=== PATIENT | male | born 1970 | race African-American/Black ===

== ENCOUNTER 2016-05-18 12:05 | Outpatient (CLI) | payer MEDICARE, MEDICAID ==
[2016-05-18 12:19] LABS: #Basophils 0.1 thou/uL (0.0-0.2); #Eosinphils 0.2 thou/uL (0.0-0.7); #Lymphocytes 3.1 thou/uL (1.20-3.40); #Monocytes 0.5 thou/uL (0.11-0.59); #Neutrophils 2.6 thou/uL (1.40-6.50); %Basophils 1.8 % (0.0-1.0); %Eosinophils 3.5 % (0.0-10.0); %Monocytes 7.6 % (0.0-10.0); Hematocrit 43.2 % (42.0-52.0); Mean Platelet Volume 6.5 fL (7.4-10.4); Red Blood Cell (RBC) Count 4.64 mill/uL (4.70-6.10); White Blood Cell (WBC) Count 6.6 thou/uL (4.8-10.8)
[2016-05-18 12:40] LABS: ALT (SGPT) 56 U/L (0-55); AST (SGOT) 38 U/L (5-34); Alkaline Phosphatase 56 U/L (40-150); Anion Gap 14 mmol/L (10-20); BUN (Urea Nitrogen) 13 mg/dL (8.9-20.6); Bilirubin, Total 0.3 mg/dL (0.2-1.2); Calc. Creatinine Clearance 0 mL/min (70-130); Calcium 9.8 mg/dL (7.8-10.44); Carbon Dioxide 24 mmol/L (22-29); Chloride 104 mmol/L (98-107); Estimated GFR-MDRD Greater than 90; Globulin 2.9 g/dL (2.4-3.5); LDL Cholesterol, Calculated 157 mg/dL; Protein, Total 7.6 g/dL (6.0-8.3)
== END 2016-05-18 12:06 | disposition home or self-care (01) ==
LOC: HPCALD 12:05
PROVIDERS: ATTEND Family Medicine
DX: I10 Essential (primary) hypertension (principal); F32.9 Major depressive disorder, single episode, unspecified
CPT/HCPCS: 36415; 80053; 80061; 84443; 85025

== ENCOUNTER 2016-06-17 13:48 | Outpatient (CLI) | payer MEDICARE ==
[2016-06-17 16:57] LABS: ALT (SGPT) 16 U/L (0-55); AST (SGOT) 21 U/L (5-34); Alkaline Phosphatase 49 U/L (40-150); Bilirubin, Direct 0.1 mg/dL (0.1-0.3); Bilirubin, Total 0.2 mg/dL (0.2-1.2); Protein, Total 6.4 g/dL (6.0-8.3)
[2016-06-17 17:33] LABS: Iron 74 ug/dL (65-175)
[2016-06-17 17:39] LABS: IRF 0.215 Ratio (0.163-0.362); Reticulocyte Count 1.4 % (0.5-1.5)
== END 2016-06-17 13:49 | disposition home or self-care (01) ==
LOC: HPCALD 13:48
PROVIDERS: ATTEND Family Medicine
DX: Z51.81 Encounter for therapeutic drug level monitoring (principal); D64.9 Anemia, unspecified; R94.5 Abnormal results of liver function studies
CPT/HCPCS: 36415; 80074; 80076; 83540; 83550; 85046

== ENCOUNTER 2016-06-17 14:01 | Outpatient (CLI) | payer MEDICARE ==
[2016-06-17 16:57] LABS: Anion Gap 12 mmol/L (10-20); BUN (Urea Nitrogen) 8 mg/dL (8.9-20.6); Calc. Creatinine Clearance 0 mL/min (70-130); Calcium 8.8 mg/dL (7.8-10.44); Carbon Dioxide 23 mmol/L (22-29); Chloride 109 mmol/L (98-107); Estimated GFR-MDRD Greater than 90
== END 2016-06-17 14:02 | disposition home or self-care (01) ==
LOC: BURLAB 14:01
PROVIDERS: ATTEND Internal Medicine Infectious Disease
DX: Z21 Asymptomatic human immunodeficiency virus [HIV] infection status (principal)
CPT/HCPCS: 36415; 80048; 80074; 80076; 83540; 83550; 85046; 85048; 86359; 86360; 87536

== ENCOUNTER 2016-07-24 11:16 | Outpatient (CLI) | payer MEDICARE ==
[2016-07-24 12:49] LABS: ALT (SGPT) 15 U/L (0-55); AST (SGOT) 25 U/L (5-34); Albumin 4.5 g/dL (3.5-5.0); Alkaline Phosphatase 58 U/L (40-150); Anion Gap 10 mmol/L (10-20); BUN (Urea Nitrogen) 8 mg/dL (8.9-20.6); Bilirubin, Total 0.3 mg/dL (0.2-1.2); Calc. Creatinine Clearance 0 mL/min (70-130); Calcium 9.2 mg/dL (7.8-10.44); Carbon Dioxide 27 mmol/L (22-29); Chloride 105 mmol/L (98-107); Estimated GFR-MDRD 89; Globulin 2.5 g/dL (2.4-3.5); Glucose 94 mg/dL (70-105); Potassium 3.3 mmol/L (3.5-5.1); Sodium 139 mmol/L (136-145)
[2016-07-24 12:51] LABS: Hemoglobin 13.1 g/dL (14.0-18.0); Mean Corpuscular HGB CONC 31.8 g/dL (32.0-36.0); Mean Corpuscular Hemoglobin 29.6 pg (27.0-31.0); Mean Corpuscular Volume 93.3 fl (80.0-94.0); Mean Platelet Volume 6.8 fL (7.4-10.4); Platelet Count 264 thou/uL (130-400); RBC Distribution Width 12.2 % (11.5-14.5); Red Blood Cell (RBC) Count 4.42 mill/uL (4.70-6.10); White Blood Cell (WBC) Count 4.9 thou/uL (4.8-10.8)
[2016-07-24 14:06] LABS: Eosinophils 10 % (0-10); Lymphocytes 52 % (21-51); MDiff Complete? YES; Monocytes 9 % (0-10); Neutrophil 28 % (42-75)
[2016-07-24 18:09] LABS: HBSAB Concentration 0.45 mIU/mL; HBSAg Index 0.21 S/CO (0-0.99); Hep B Surf AB Non-Reactive (NonReactive); Hep B Surf Ag Non-Reactive S/CO (NonReactive); Hep C IgG Ab Non-Reactive (NonReactive); Hep C Index 0.07 S/CO (0-0.79)
[2016-07-27 15:20] LABS: Absolute CD4 1040 /uL (359-1519); Lymphocytes/Gated Cell Count 2.6 x10E3/uL (0.7-3.1); Total Lymphocyte 55 % (.); WBC Total Count 4.6 x10E3/uL (3.4-10.8)
== END 2016-07-24 11:17 | disposition home or self-care (01) ==
LOC: BURLAB 11:16
PROVIDERS: ATTEND Internal Medicine Infectious Disease
DX: Z21 Asymptomatic human immunodeficiency virus [HIV] infection status (principal)
CPT/HCPCS: 36415; 80053; 85025; 85048; 86361; 86592; 86706; 86708; 86803; 87340; 87536; 87591

== ENCOUNTER 2016-07-27 10:56 | Outpatient (CLI) | payer MEDICARE | END 2016-07-27 10:57 | disposition home or self-care (01) | LOC: BURLAB 10:56 | PROVIDERS: ATTEND Internal Medicine Infectious Disease | DX: Z21 Asymptomatic human immunodeficiency virus [HIV] infection status (principal) ==

== ENCOUNTER 2016-08-12 11:36 | Outpatient (CLI) | payer MEDICARE | END 2016-08-12 11:37 | disposition home or self-care (01) | LOC: BURLAB 11:36 | PROVIDERS: ATTEND Internal Medicine Infectious Disease | DX: Z21 Asymptomatic human immunodeficiency virus [HIV] infection status (principal) | CPT/HCPCS: 86480 ==

== ENCOUNTER 2016-09-28 16:20 | Emergency (ER) | payer MEDICARE | END 2016-09-28 17:13 | disposition home or self-care (01) | LOC: BURERS 16:20 | DX: F19.10 Other psychoactive substance abuse, uncomplicated (principal); Z59.0 Homelessness; E78.5 Hyperlipidemia, unspecified; E78.00 Pure hypercholesterolemia, unspecified; I10 Essential (primary) hypertension; F17.210 Nicotine dependence, cigarettes, uncomplicated; F32.9 Major depressive disorder, single episode, unspecified; Z79.899 Other long term (current) drug therapy | CPT/HCPCS: 99283 ==